=== PATIENT | male | born 1955 | race Caucasian/White ===

== ENCOUNTER 2016-08-26 01:38 | Inpatient (IN) | payer OTHER, MEDICARE ==
--- NOTE | 2016-08-23 12:56 | History & Physical Pre-Op ---
General Information and HPI History of Present Illness: Stanley is a 61-year-old diabetic with poorly controlled sugars who has a history of a long-standing nonhealing ulceration to the distal tip of his left second digit. Unfortunately, this lesion worsened with the interval development of cellulitis and now an underlying osteomyelitis. The patient failed strict offloading and local intensive wound care. Patient will now require IV antibiotics and a surgical debridement. Allergies/Medications Allergies: Coded Allergies: NO KNOWN ALLERGIES (07/18/14) Home Med list Amlodipine Besylate 2.5 MG TABLET 1 TAB PO DAILY HTN (Reported) Atorvastatin Calcium (Lipitor) 10 MG TABLET 1 TAB PO DAILY CHOLESTEROL ( Reported) Gabapentin 300 MG CAPSULE 600 MG PO BID NEUROPATHY (Reported) Glimepiride 4 MG TABLET 1 TAB PO DAILY DM (Reported) Hydrochlorothiazide (Hydrodiuril 25 MG Tab) 25 MG TABLET 1 TAB PO DAILY HTN ( Reported) Losartan Potassium 50 MG TABLET 1 TAB PO DAILY HTN (Reported) Meloxicam (Mobic) 15 MG TABLET 1 TAB PO DAILY PRN PAIN/INFLAMMATION Metformin Hydrochloride/Jacki (Janumet 1000 MG-50 MG) 1 TAB TAB 1 TAB PO BID DM (Reported) Oxycodone HCl 10 MG TABLET 1 TAB PO TID PRN BREAKTHROUGH PAIN Oxycodone HCl 10 MG TABLET 1 TAB PO BID PRN PAIN Oxycodone HCl/Acetaminophen (Percocet 10-325 MG Tablet) 1 EACH TABLET 1 TAB PO TIDP PAIN Oxycodone Hydrochloride (Oxycodone) 5 MG TAB 1 TAB PO EVERY 6HRS- NEEDED PAIN CONTROL Pantoprazole Sodium 20 MG ECT 1 TAB PO DAILY GI (Reported) Varenicline (Chantix 1 MG) 1 MG TABLET 1 TAB PO BID SMOKING (Reported) Past History Medical History Neurological: NONE EENT: NONE Cardiovascular: hypertension, hyperlipidemia Respiratory: NONE Gastrointestinal: irritable bowel syndrome Hepatic: NONE Renal: NONE Musculoskeletal: fracture Psychiatric: NONE Endocrine: diabetes Blood Disorders: NONE Cancer(s): NONE 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 Heart sounds rate and rhythm regular. Lower extremity physical exam demonstrates intact pedal pulses bilaterally. Pulses dorsalis pedis and posterior tibial arteries are palpable bilaterally. Patient noted to have a sensory deficit plantarly in a moccasin type distribution involving both the left and right feet. Patient noted to have a Paredes grade 3 ulceration to the distal tip of his left second digit. There is cellulitis extending proximal to the metatarsophalangeal joint. X-ray findings demonstrated and osteomyelitis involving the second digit. Assessment/Plan Assessment/Plan: Left foot osteomyelitis. A lengthy discussion reviewing both surgical and conservative options was held the patient at bedside and the patient elects to go forward with surgery despite the risks. As Ranked By This Provider Problem List: 1. Other acute osteomyelitis, left ankle and foot Attending MD Review Statement Attending Statement Attending MD Statement: examined this patient
[~2016-08-26] VITALS: Ht 185.4 cm; Wt 99.8 kg
[~2016-08-26 01:38] MED LIST: AMLODIPINE BESYL5 M1 PO; ATORVASTATIN CA10 MG PO; AUGMENTIN 875875 MG PO; CHANTIX 1 MG1 MG PO; GABAPENTIN300 MG PO; GLIMEPIRIDE4 MG PO; HYDROCHLOROTH12.5 M3 PO; HYDRODIURIL 2525 MG PO; JANUMET 1000 MG1 TAB PO; LOSARTAN POTASS50 MG PO; MOBIC15 M1 PO; NORVASC5 M1 PO; OXYCODONE HCL10 M2 PO; OXYCODONE5 MG PO; PANTOPRAZOLE SO20 MG PO; PERCOCET 10-321 EACH PO; PERCOCET 325 MG1 TA2 PO; PERCOCET 5-3251 EACH PO; VALIUM5 MG PO
--- NOTE | 2016-08-26 13:50 | Operative Report ---
Operative/Inv Procedure Report Surgery Date: 08/26/16 Name of Procedure: 1 open incision and drainage deep to the deep fascia with exposure of the extensor and flexor tendon and tendon sheath multiple sites left foot 2 partial second ray resection left foot 3 intraoperative administration of ankle block anesthesia Pre-Operative Diagnosis: 1 open infected wound left foot 2 osteomyelitis left foot 3 diabetic peripheral neuropathy Post-Operative Diagnosis: The same Estimated Blood Loss: less than 50ml Surgeon/Belt Sewer: ROLA LEE DPM Anesthesia: moderate sedation, block Operative/Procedure Note Note: After obtaining informed consent the patient was brought to the operating room and placed on the operating table in the supine position. The patient was then securely fastened to the operating table utilizing a safety belt. After administration of IV sedation, 10 mL of 0.5% Marcaine plain was infiltrated about the patient's left ankle. And ankle within scrubbed prepped and draped in usual aseptic manner. Attention was directed to the left foot were large full- thickness necrotic was identified at the level of the second digit encompassing the tissue down to the metatarsophalangeal joint. A racquet-type incision encompassing the second digit was marked out with a skin marker and the skin was sized along these lines. Full-thickness flaps were developed dorsally and plantarly. The dissection was then carried down deep to the D fashion with exposure of the extensor and flexor tendon and tendon sheath multiple sites, both proximally and distally. All necrotic nonviable and infected tissue sharply evacuated from the wound bed. The dissection was then carried down to the periosteum overlying the distal osseous segment which was incised and reflected. A sagittal bone saw was utilized performed through and through osteotomy. Bone specimen was harvested for both microbiologic and pathologic inspection. The open wound was then irrigated with 3 L of normal sterile saline infusion 50,000 units of bacitracin. Following this, the foot was redraped and the surgeon's top gloves were exchanged for clean gloves. Any bleeding vessels identified were cauterized or ligated as encountered. Nipple was then packed with iodoform and 3-0 nylon retention sutures were placed. The foot was then dressed with 4 x 4's Kerlix and an Eduardo wrap. The patient was noted to tolerate both procedure and anesthesia well and the patient was transported from the operating room to recovery with vital signs stable.
--- NOTE | 2016-08-26 15:21 | Cons- Medical ---
JERRY HERNANDEZ MD 08/26/16 1515: General Information and HPI Consulting Request Date of Consult: 08/26/16 Requested By: ROLA LEE DPM Reason for Consult: Diabetes, Hypertension Source of Information: patient, old records Exam Limitations: no limitations History of Present Illness: 61 year old man with a past medical history of diabetes, HTN, HLD, chronic back pain, neuropathy, who presents after open infected wound of left foot. Today he had open incision and drainage. He has no complaints at this time and would like to eat. Reports taking medications as prescribed. He does not check his blood sugars regularly, does report that they are usually well controlled. He saw his PCP last week and was given amlodipine to better control his blood pressure. He doesnt seem to have a grasp of the need for close monitoring of his blood sugars as he states he doesnt want to use insulin even if blood sugars are not controlled. Medicine has been asked to help manage his Diabetes and Hypertension. Allergies/Medications Allergies: Coded Allergies: NO KNOWN ALLERGIES (07/18/14) Home Med List: Amlodipine Besylate (Norvasc) 5 MG TABLET 1 TAB PO DAILY HTN (Reported) TAKES AT NIGHT Amlodipine Besylate 5 MG TABLET 1 TAB PO DAILY HTN (Reported) Atorvastatin Calcium (Lipitor) 10 MG TABLET 1 TAB PO DAILY CHOLESTEROL ( Reported) Gabapentin 300 MG CAPSULE 600 MG PO BID NEUROPATHY (Reported) Glimepiride 4 MG TABLET 1 TAB PO DAILY DM (Reported) Hydrochlorothiazide 12.5 MG CAPSULE 1 CAP PO DAILY HTN (Reported) Losartan Potassium 50 MG TABLET 1 TAB PO DAILY HTN (Reported) Metformin Hydrochloride/Jacki (Janumet 1000 MG-50 MG) 1 TAB TAB 1 TAB PO BID DM (Reported) Oxycodone HCl/Acetaminophen (Percocet 10-325 MG Tablet) 1 EACH TABLET 1 TAB PO TIDP PAIN Pantoprazole Sodium 20 MG ECT 1 TAB PO DAILY GI (Reported) Varenicline (Chantix 1 MG) 1 MG TABLET 1 TAB PO BID SMOKING (Reported) Current Medications: Current Medications Sig/Isaac Start time Last Medication Dose Route Stop Time Status Admin Amlodipine Besylate 2.5 MG DAILY 08/27 1000 AC PO Ampicillin Sodium/ 1,500 MG Q6 08/26 1800 AC Sulbactam Sodium IV Sodium Chloride 100 ML Atorvastatin Calcium 10 MG 1700 08/26 1700 AC PO Gabapentin 600 MG BID 08/26 2199 AC PO Glimepiride 4 MG DAILY 08/27 1000 AC PO Heparin Sodium 5,000 UNIT Q8 08/26 2199 AC (Porcine) SC Hydrochlorothiazide 25 MG DAILY 08/27 1000 AC PO Insulin Aspart 0 TIDAC 08/26 1700 AC SC Losartan Potassium 50 MG DAILY 08/27 1000 AC PO Omeprazole 20 MG DAILY AC 08/27 0700 AC PO Oxycodone HCl 10 MG BID 08/26 220 AC PO Oxycodone HCl 10 MG Q6P PRN 08/26 1515 AC PO Varenicline 1 MG BID 08/26 220 AC PO Review of Systems Review of Systems Constitutional: Reports: no symptoms, see HPI. 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 Home Who Do You Live With? spouse Services at Home: None Smoking Status: Unknown If Ever Smoked Functional Ability ADLs Independent: dressing, eating, toileting, bathing. Ambulation: independent IADLs Independent: shopping, housework, finances, food prep, telephone, transportation , medication admin. Exam & Diagnostic Data Last 24 Hrs of Vital Signs/I&O Vital Signs Date Time Temp Pulse Resp B/P Pulse O2 O2 Flow FiO2 Ox Delivery Rate 08/26 1637 Room Air Physical Exam General Appearance: alert, awake, comfortable Head: atraumatic, normal appearance Eyes: Bilateral: normal appearance, PERRL, EOMI. Neck: normal inspection, supple Respiratory: normal breath sounds, quiet respiration, lungs clear Cardiovascular: regular rate/rhythm Peripheral Pulses: 2+ radial (R) Gastrointestinal: normal bowel sounds, soft, non-tender Extremities: no edema Last 24 Hrs of Labs/Jean: WBC 7.2 HH 12.9/37.6 Platelets 307 Na 143 K 5.0 Cl 100 Bicarb 28 BUN 23 Cr 1.0 BS 179 Assessment/Plan Assessment/Plan 61 YO M with history of hypertension, dm, chronic back pain, neuropathy who had debridement of left foot for nonhealing wound and is suspected of having osteomyelitis. We are asked to see him for his diabetes and hypertension. HTN we will continue home medications, HCTZ, Amlodipine Diabetes accuchecks, continue home medications, janumet, glipizide will not use insulin if needed, wants to eat regular diet Neuropathy continue gabapentin DVT Heparin SQ Problem List: 1. Cellulitis 2. Diabetes 3. HTN (hypertension) 4. HLD (hyperlipidemia) Consult Acknowledgment - Thank you for your consult request. GRABIEL HENRY,EMILE 08/26/16 9595: Assessment/Plan Consult Acknowledgment - Thank you for your consult request. Attending MD Review Statement Attending Statement Attending MD Statement: examined this patient, discuss w/resident/PA/CHILD CARE EDUCATION COORDINATOR, agreed w/resident/PA/CHILD CARE EDUCATION COORDINATOR, reviewed EMR data (avail), discussed with nursing, amended to note Attending Assessment/Plan: 61-year-old male with history significant for hypertension, diabetes, chronic back pain, neuropathy who admitted under Dr. Howell service after he had a debridement off the left foot chronic nonhealing wound as well as osteomyelitis. Medical consult is obtained for comanagement of his chronic medical issues. Patient was started on antibiotics per Dr. Lee. He currently denies any pain. He absolutely refuses to go on any kind of insulin. He also refuses to go on carbohydrate controlled diet. He has been started on his home medications for his hypertension and diabetes per Dr. Lee. He claims that he had seen his doctor about a week ago and everything was normal. VSS On exam; aox3, nad. cv; s1,s2, rrr resp; clear abd; soft, nt, b+ ext; no edema. left foot wrapped in maddy wrap. Labs from 08/25/16 reviewed. Assessment and recommendations: 61-year-old male with history significant for hypertension, diabetes, chronic back pain, neuropathy who admitted under Dr. Howell service after he had a debridement off the left foot chronic nonhealing wound as well as osteomyelitis. Medical consult is obtained for comanagement of his chronic medical issues. Would recommend confirming his home medications for hypertension, pain as well as diabetes. Would recommend continuing the patient on his home regimen. Patient absolutely refuses to go on any kind of insulin. He does not want to be started on carbohydrate controlled diet. Please confirm with Dr. Lee if there is any plan to take patient to operating room again. Antibiotics per Dr. Lee. DVT prophylaxis: Heparin subcutaneous. Please check CBC and BEP in the morning. Thank you, will follow.
[2016-08-26 17:00] VITALS: BP 140/70
[2016-08-26 22:06] VITALS: BP 140/70
[2016-08-27 06:25] VITALS: BP 150/76
[2016-08-27 08:11] LABS: ABSOLUTE BASOPHIL COUNT 0 /CUMM (0.0-0.2); ABSOLUTE EOSINOPHIL COUNT 0.3 /CUMM (0.0-0.7); ABSOLUTE GRANULOCYTE CT 6.4 /CUMM (1.4-6.5); ABSOLUTE LYMPH COUNT 1.7 /CUMM (1.2-3.4); ABSOLUTE MONOCYTE COUNT 0.7 /CUMM (0.10-0.60); BASOPHIL % 0.3 % (0.0-2.0); EOSINOPHIL % 3.8 % (0-5); GRANULOCYTE % 69.9 % (42.2-75.2); HEMATOCRIT 36.5 % (42-52); MEAN CORPUSCULAR HGB 29.8 PG (27.0-31.0); MEAN CORPUSCULAR HGB CONC 33.4 G/DL (33.0-37.0); MEAN CORPUSCULAR VOLUME 89.3 FL (80.0-94.0); PLATELET COUNT 275 /CUMM (130-400); RBC DISTRIBUTION WIDTH 13.4 % (11.5-14.5); RED BLOOD CELL CT 4.09 /CUMM (4.70-6.10); WHITE BLOOD CELL COUNT 9.1 /CUMM (4.8-10.8)
--- NOTE | 2016-08-27 10:04 | PN- Medicine Consult ---
DAVID HENRY,[place] 08/27/16 0955: Assessment/Plan Assessment/Plan Assessment: 61 YO M with history of hypertension, dm, chronic back pain, neuropathy who had debridement of left foot for nonhealing wound and is suspected of having osteomyelitis. We are asked to see him for his diabetes and hypertension. HTN BP adequately controlled. Recommedation to eat low salt diet, he is noncomplaint with recommendations. we will continue home medications, HCTZ, Amlodipine Diabetes accuchecks, 161 continue home medications, janumet, glipizide States he will not use insulin if needed, wants to eat regular diet. He is noncompliant with recommendations Neuropathy continue gabapentin DVT Heparin SQ Plan: See above Problem List: 1. HTN (hypertension) 2. HLD (hyperlipidemia) 3. DVT prophylaxis 4. Full code status 5. Foot osteomyelitis, right 6. Neuropathy Subjective Subjective: Reports becoming angry with night nurse. Refused last night's accucheck. Slept well. No complaints at this time. Review of Systems Constitutional: Reports: see HPI. Objective Last 24 Hrs of Vital Signs/I&O Vital Signs Date Time Temp Pulse Resp B/P B/P Pulse O2 O2 Flow FiO2 Mean Ox Delivery Rate 08/27 0625 97.9 82 20 150/76 99 Room Air 08/27 0558 76 140/70 08/26 2206 76 20 140/70 98 08/26 1700 83 18 140/70 95 Room Air 08/26 1637 Room Air Intake & Output 08/27 1600 08/27 0800 08/27 0000 Intake Total 300 Output Total Balance 300 Intake, Oral 300 Patient 220 lb Weight Physical Exam General Appearance: well developed/nourished, no apparent distress, alert, awake , comfortable Head: atraumatic, normal appearance Neck: normal inspection, supple Cardiovascular: regular rate/rhythm Respiratory: normal breath sounds, quiet respiration, lungs clear Peripheral Pulses: 2+ radial (R) Abdomen: normal bowel sounds, soft, non-tender Extremities: no edema, left foot bandaged, I&D done yesterday Neurologic/Psychiatric: awake, alert, oriented x 3 Current Medications: Current Medications Sig/Isaac Start time Last Medication Dose Route Stop Time Status Admin Amlodipine Besylate 2.5 MG DAILY 08/27 1000 DC PO Amlodipine Besylate 5 MG 0600 08/27 0600 AC 08/27 PO 0558 Amlodipine Besylate 5 MG DAILY 08/26 2100 DC PO Ampicillin Sodium/ 1,500 MG Q6 08/26 1800 AC 08/27 Sulbactam Sodium IV 0551 Sodium Chloride 100 ML Ascorbic Acid 500 MG 1800 08/27 1800 AC PO Ascorbic Acid 500 MG 0600 08/27 0600 DC PO Ascorbic Acid 500 MG DAILY 08/26 1806 DC PO Atorvastatin Calcium 10 MG 1800 08/27 1800 AC PO Atorvastatin Calcium 10 MG 1700 08/26 1700 DC PO Cyanocobalamin 250 MCG 0600 08/27 0600 AC 08/27 PO 0559 Cyanocobalamin 250 MCG DAILY 08/26 1806 DC PO Gabapentin 600 MG 0600,1800 08/27 0600 AC 08/27 PO 0559 Gabapentin 600 MG BID 08/26 2200 DC 08/26 PO 1807 Glimepiride 4 MG DAILY 08/27 1000 DC PO Glimepiride 4 MG 0600 08/27 0600 AC 08/27 PO 0558 Heparin Sodium 5,000 UNIT Q8 08/26 2200 AC (Porcine) SC Hydrochlorothiazide 25 MG DAILY 08/27 1000 DC PO Hydrochlorothiazide 25 MG 0600 08/27 0600 AC 08/27 PO 0600 Hydromorphone HCl 2 MG .STK-MED ONE 08/26 1357 DC IM 08/26 1358 Insulin Aspart 0 TIDAC 08/26 1700 DC SC Losartan Potassium 50 MG DAILY 08/27 1000 DC PO Losartan Potassium 50 MG 0600 08/27 0600 AC 08/27 PO 0600 Meperidine HCl 50 MG .STK-MED ONE 08/26 1357 DC IM 08/26 1358 Metformin HCl 1,000 MG 0800 08/27 0800 DC PO Metformin HCl 1,000 MG 0600 08/27 0600 AC 08/27 PO 0600 Omeprazole 20 MG DAILY AC 08/27 0700 DC PO Omeprazole 20 MG 0600 08/27 0600 AC 08/27 PO 0559 Oxycodone HCl 10 MG 0600,1800 08/27 0600 AC 08/27 PO 0612 Oxycodone HCl 10 MG BID 08/26 2200 DC PO Oxycodone HCl 10 MG Q6P PRN 08/26 1515 AC PO Sitagliptin Phosphate 50 MG DAILY 08/27 1000 DC PO Sitagliptin Phosphate 50 MG 0600 08/27 0600 AC 08/27 PO 0600 Varenicline 1 MG 0600,1800 08/27 0600 AC 08/27 PO 0611 Varenicline 1 MG BID 08/26 2200 DC PO Results Last 24 Hrs Lab/Jean Results: Laboratory Tests 08/27/16 0650: Anion Gap 9, Estimated GFR > 60, BUN/Creatinine Ratio 24.4, CBC w Diff NO MAN DIFF REQ, RBC 4.09 L, MCV 89.3, MCH 29.8, RDW 13.4, MPV 8.0, Gran % 69.9, Lymphocytes % 18.5 L, Monocytes % 7.5, Eosinophils % 3.8, Basophils % 0.3, Absolute Granulocytes 6.4, Absolute Lymphocytes 1.7, Absolute Monocytes 0.7 H, Absolute Eosinophils 0.3, Absolute Basophils 0, PUBS MCHC 33.4 Microbiology 08/26 131 EXTREMITIE: Gross Specimen Examination - RECD 08/26 1314 EXTREMITIE: Gram Stain - RECMeet SPAIN MD,EMILE 08/27/16 1148: Attending MD Review Statement Attending Sign Off Attending Cosign Statement: I have: examined this patient, reviewed al EMR data, discussd w/resident/PA/ RHEOLOGIST, discussed mgmt plan w/madison, discussed mgmt plan w/pt, agreed w/resident/PA/RHEOLOGIST , amended to note. Other Findings: Patient seen and examined, denies any complaints. He has a history of chronic pain but said that currently his pain is controlled on current regimen. Vital Signs Date Time Temp Pulse Resp B/P B/P Pulse O2 O2 Flow FiO2 Mean Ox Delivery Rate 08/27 0625 97.9 82 20 150/76 99 Room Air 08/27 0558 76 140/70 08/26 2206 76 20 140/70 98 08/26 1700 83 18 140/70 95 Room Air 08/26 1637 Room Air on exam; aox3, nad. cv; s1,s2, rrr resp; clear abd; soft, nt, bs+ ext; no edema ms: left foot warpped in maddy wrap. Laboratory Tests 08/27 0650 Chemistry Sodium (137 - 145 mmol/L) 140 Potassium (3.5 - 5.1 mmol/L) 5.1 Chloride (98 - 107 mmol/L) 101 Carbon Dioxide (22 - 30 mmol/L) 29 Anion Gap (5 - 16) 9 BUN (9 - 20 mg/dL) 22 H Creatinine (0.7 - 1.2 mg/dL) 0.9 Estimated GFR (>60 ml/min) > 60 BUN/Creatinine Ratio (7 - 25 %) 24.4 Hematology CBC w Diff NO MAN DIFF REQ WBC (4.8 - 10.8 /CUMM) 9.1 RBC (4.70 - 6.10 /CUMM) 4.09 L Hgb (14.0 - 18.0 G/DL) 12.2 L Hct (42 - 52 %) 36.5 L MCV (80.0 - 94.0 FL) 89.3 MCH (27.0 - 31.0 PG) 29.8 RDW (11.5 - 14.5 %) 13.4 Plt Count (130 - 400 /CUMM) 275 MPV (7.4 - 10.4 FL) 8.0 Gran % (42.2 - 75.2 %) 69.9 Lymphocytes % (20.5 - 51.1 %) 18.5 L Monocytes % (1.7 - 9.3 %) 7.5 Eosinophils % (0 - 5 %) 3.8 Basophils % (0.0 - 2.0 %) 0.3 Absolute Granulocytes (1.4 - 6.5 /CUMM) 6.4 Absolute Lymphocytes (1.2 - 3.4 /CUMM) 1.7 Absolute Monocytes (0.10 - 0.60 /CUMM) 0.7 H Absolute Eosinophils (0.0 - 0.7 /CUMM) 0.3 Absolute Basophils (0.0 - 0.2 /CUMM) 0 PUBS MCHC (33.0 - 37.0 G/DL) 33.4 Assessment and recommendations: 61-year-old male with history significant for hypertension, diabetes, chronic back pain, neuropathy who admitted under Dr. Howell service after he had a debridement off the left foot chronic nonhealing wound as well as osteomyelitis POD # 1 today. Medical consult is obtained for comanagement of his chronic medical issues. Patient has been started back on his oral hypoglycemics. He is noncompliant with recommendations and absolutely refuses to get insulin. He does not want to take carbohydrate controlled diet and basically eating regular diet. He has been started on IV Unasyn per podiatry. I discussed with Dr. Wu, patient will be taken back to operating room tomorrow for further debridement. He is also refsuing finger stick checks. DVT Px: hep sq. Thank you, will follow.
[2016-08-27 14:22] VITALS: BP 136/60
[2016-08-27 22:42] VITALS: BP 120/60
[2016-08-28 06:38] VITALS: BP 142/74
--- NOTE | 2016-08-28 09:19 | PN- Medicine Consult ---
DAVID HENRY,JERRY 08/28/16 0912: Assessment/Plan Assessment/Plan Assessment: 61 YO M with history of hypertension, dm, chronic back pain, neuropathy who had debridement of left foot for nonhealing wound and is suspected of having osteomyelitis. We are asked to see him for his diabetes and hypertension. He is NPO this morning for revision of his left foot. HTN BP adequately controlled. Recommedation to eat low salt diet, he is noncomplaint with recommendations. Refusing to take medications this morning, NPO for revision of left foot. Diabetes accuchecks, 161, 144, 204, 157, 102 States he will not use insulin if needed, wants to eat regular diet. He is noncompliant with recommendations Neuropathy continue gabapentin DVT Heparin SQ Plan: See above Problem List: 1. HTN (hypertension) 2. DVT prophylaxis 3. Full code status 4. Other acute osteomyelitis, left ankle and foot 5. Diabetes Subjective Subjective: Reports feeling well. No complaints. Wants to go home today after foot revision Review of Systems Constitutional: Reports: see HPI. Objective Last 24 Hrs of Vital Signs/I&O Vital Signs Date Time Temp Pulse Resp B/P B/P Pulse O2 O2 Flow FiO2 Mean Ox Delivery Rate 08/28 0638 98.4 75 20 142/74 97 Room Air 08/27 2242 98.3 76 20 120/60 97 Room Air 08/27 1422 98.8 79 18 136/60 95 Room Air Intake & Output 08/28 1600 08/28 0800 08/28 0000 Intake Total 240 150 Output Total Balance 240 150 Intake, IV 240 150 Number 0 Bowel Movements Physical Exam General Appearance: well developed/nourished, alert, awake, comfortable Head: atraumatic, normal appearance Cardiovascular: regular rate/rhythm Respiratory: normal breath sounds, lungs clear Peripheral Pulses: 2+ radial (R) Abdomen: normal bowel sounds, soft, non-tender Extremities: no edema, left foot bandaged- Dr. Wu following Neurologic/Psychiatric: awake, alert, oriented x 3 Current Medications: Current Medications Sig/Isaac Start time Last Medication Dose Route Stop Time Status Admin Amlodipine Besylate 5 MG 0600 08/27 0600 AC 08/27 PO 0558 Ampicillin Sodium/ 1,500 MG Q6 08/26 1800 AC 08/28 Sulbactam Sodium IV 0605 Sodium Chloride 100 ML Ascorbic Acid 500 MG 1800 08/27 1800 AC 08/27 PO 1747 Atorvastatin Calcium 10 MG 1800 08/27 1800 AC 08/27 PO 1746 Cyanocobalamin 250 MCG 0600 08/27 0600 AC 08/27 PO 0559 Dextrose/Sodium 1,000 ML Q20H 08/28 0100 AC 08/28 Chloride IV 0736 Dextrose/Sodium 1,000 ML ONCE ONE 08/27 1515 CAN Chloride IV 08/28 1114 Gabapentin 600 MG 0600,1800 08/27 0600 AC 08/27 PO 1745 Glimepiride 4 MG 0600 08/27 0600 AC 08/27 PO 0558 Heparin Sodium 5,000 UNIT Q8 08/26 2200 AC (Porcine) SC Hydrochlorothiazide 25 MG 0600 08/27 0600 AC 08/27 PO 0600 Losartan Potassium 50 MG 0600 08/27 0600 AC 08/27 PO 0600 Metformin HCl 1,000 MG 0600 08/27 0600 AC 08/27 PO 0600 Omeprazole 20 MG 0600 08/27 0600 08/27 PO 0559 Oxycodone HCl 10 MG 0600,1800 08/27 0600 AC 08/28 PO 0614 Oxycodone HCl 10 MG Q6P PRN 08/26 1515 AC 08/27 PO 1149 Patient Medication 1 ED .STK-MED ONE 08/27 1404 DC Teaching ED 08/27 1405 Sitagliptin Phosphate 50 MG 0600 08/27 0600 08/27 PO 0600 Varenicline 1 MG 0600,1800 08/27 0600 AC 08/27 PO 1746 Results Last 24 Hrs Lab/Jean Results: no labs GRABIEL HENRY,[facility] 08/28/16 1110: Attending MD Review Statement Attending Sign Off Attending Cosign Statement: I have: examined this patient, reviewed aval EMR data, personally reviewd images, discussd w/resident/PA/REGIONAL MANAGER, discussed mgmt plan w/madison, discussed mgmt plan w/pt, agreed w/resident/PA/REGIONAL MANAGER, amended to note. Other Findings: Patient seen and examined, and claims that he's feeling tired. He did not get a good night sleep. Patient is scheduled to go the operating room again today. Vital Signs Date Time Temp Pulse Resp B/P B/P Pulse O2 O2 Flow FiO2 Mean Ox Delivery Rate 08/28 0638 98.4 75 20 142/74 97 Room Air 08/27 2242 98.3 76 20 120/60 97 Room Air 08/27 1422 98.8 79 18 136/60 95 Room Air on exam; aox3, nad. cv; s1,s2, rrr resp; clear abd; soft, nt, bs+ ext; no edema no labs today. Bone culture growing staph aureus. Blood sugars are stable. Assessment and recommendations: 61-year-old male with history significant for hypertension, diabetes, chronic back pain, neuropathy who admitted under Dr. Howell service after he had a debridement of the left foot chronic nonhealing wound as well as osteomyelitis POD # 2 today. Bone cultures growing staph on his. Patient scheduled to go the OR again today for further debridement. Medical consult is obtained for comanagement of his chronic medical issues. Blood pressure and blood sugars are stable. Discussed with Dr. Wu about the bone culture results. Currently patient on Unasyn per Dr. Wu. I'm not sure what his plan is in terms of antibiotics. Pain management is adequate. Continue all current regimen. DVT prophylaxis: Hep sq. Thank you, will follow.
[2016-08-28 15:15] VITALS: BP 134/84
--- NOTE | 2016-08-28 19:30 | Operative Report ---
Operative/Inv Procedure Report Surgery Date: 08/28/16 Name of Procedure: 1 open incision and drainage deep to the deep fascia with exposure of the extensor and flexor tendon and tendon sheath multiple sites left foot 2 delayed primary closure of open surgical wound with local random advancement flap 3 revisional partial second ray resection left foot 4 intraoperative administration of ankle block anesthesia 5 excisional debridement Pre-Operative Diagnosis: 1 open necrotic wound left foot 2 osteomyelitis left foot 3 diabetic peripheral neuropathy Post-Operative Diagnosis: The same Estimated Blood Loss: less than 50ml Surgeon/Fractionating Still Operator: ROLA LEE DPM Anesthesia: moderate sedation, block Operative/Procedure Note Note: After obtaining informed consent the patient was brought to the operating room and placed on the operating table in the supine position. The patient was then securely fastened to the operating table utilizing a safety belt. After administration of IV sedation, 10 mL of 0.5% Marcaine plain was infiltrated about the patient's left ankle. Left foot and ankle then scrubbed prepped and draped in usual aseptic manner. Left foot, where a large full-thickness necrotic was identified. A 15 blade was utilized sharply revised skin margins. The dissection was then carried down deep to the deep fascia with exposure of the extensor and flexor tendon and tendon sheath multiple sites, both proximally and distally. All necrotic nonviable and infected tissue sharply evacuated from the wound bed. The dissection was then continued proximally to the level of the capture structures at the metatarsophalangeal joint. These were released and the distal osseous segment was freed and passed from the operative field. The specimen was sent for pathologic inspection. The open wound was then irrigated with 3 L of normal sterile saline infusion 50,000 units of bacitracin. Following this, the foot was redraped and the surgeon's top gloves were exchanged for clean gloves. Any bleeding vessels identified were cauterized or ligated as encountered. A dorsal medial dorsal lateral flap was then developed with undermining, mobilization and advancement of the adjacent tissues. A dorsal lateral flap was rotated centrally and secured with 3-0 Vicryl. The dorsal medial flap was similarly rotated and again secured centrally with 3-0 Vicryl. The septae stitches were reapproximated 4-0 Vicryl and the skin edges were reapproximated with 3-0 nylon. The incision was dressed with Xeroform 4 x 4's Kerlix and an Eduardo wrap. The patient was noted to tolerate both procedure and anesthesia well and the patient was transported from the operating room to recovery with vital signs stable best assess intact to both the dorsal medial dorsal lateral flaps.
--- NOTE | 2016-08-28 19:32 | Surgical Discharge Summary ---
Visit Information Visit Dates Admission Date: 08/26/16 Discharge Date: 08/28/16 History of Present Illness Chief Complaint: Stanley is a 61-year-old poorly controlled diabetic with a history of a long- standing and nonhealing ulceration to his left second digit. The patient failed a course of local intensive wound care and strict offloading. Unfortunately, despite the course of by mouth antibiotics the patient developed an underlying osteomyelitis. Now requires an admission for IV antibiotics and surgical debridement. Medical History Blood Transfusion Hx: No Neurological: NONE, peripheral neuropathy, restless leg syndrome EENT: NONE Cardiovascular: hypertension, hyperlipidemia Respiratory: NONE Gastrointestinal: NONE Hepatic: NONE Renal: NONE Musculoskeletal: chronic back pain, falls Psychiatric: NONE Endocrine: diabetes Blood Disorders: NONE Cancer(s): NONE SPEED OPERATOR/Reproductive: NONE History of MRSA: No History of VRE: No History of CDIFF: No Isolation History: Standard Surgical History Pertinent Surgical History: cervical fusion RT FOOT (I AND D) Family History Relations & Conditions If Any: Relation not specified for: *No pertinent family history Psychosocial History Where Do You Live? Home Who Do You Live With? Spouse Services at Home: None What is Your Primary Language? Mongolian Review of Systems: Unremarkable except for that noted in history of present illness Hospital Course Course Attending Physician: ROLA LEE DPM Primary Care Physician: ARLEY SPAULDING APRN [facility] Course: Patient was admitted for IV antibiotics and an initial debridement which she tolerated well. Patient was transferred to the floor after an open incision and drainage. His bone cultures were harvested and the patient was started on broad -spectrum IV antibiotics. The patient remained stable and afebrile during the course of his stay. Patient returned to the OR for a revision and closure. Allergies: Coded Allergies: NO KNOWN ALLERGIES (07/18/14) Disposition Summary Disposition Principal Diagnosis: Osteomyelitis left foot Additional Diagnosis: Left lower extremity cellulitis Discharge Disposition: home or self care Discharge Instructions General Discharge Information Code Status: Full Code Patient's Diet: 2200 kcal ADA diet Patient's Activity: Heel touch left foot. Keep dressing clean dry and intact. Follow-Up Instructions/Appts: Patient was instructed follow-up with Dr. Lee within 1 week of discharge. Medications at Discharge Discharge Medications: Continue taking these medications: Gabapentin (Gabapentin) 300 MG CAPSULE 600 Milligram ORAL TWICE DAILY Qty = 120 Comments: Last Taken:06/25/14 Time:1000 Losartan Potassium (Losartan Potassium) 50 MG TABLET 1 Tablet ORAL DAILY Qty = 30 Comments: Last Taken:06/25/14 Time:1000 Glimepiride (Glimepiride) 4 MG TABLET 1 Tablet ORAL DAILY Qty = 30 Comments: NOT GIVEN Amlodipine Besylate (Norvasc) 5 MG TABLET 1 Tablet ORAL DAILY Instructions: TAKES AT NIGHT Varenicline (Chantix 1 MG) 1 MG TABLET 1 Tablet ORAL TWICE DAILY Qty = 56 Comments: Last Taken:06/25/14 Time:1000 Metformin Hydrochloride/Jacki (Janumet 1000 MG-50 MG) 1 TAB TAB 1 Tablet ORAL TWICE DAILY Qty = 60 Comments: NOT GIVEN Pantoprazole Sodium (Pantoprazole Sodium) 20 MG ECT 1 Tablet ORAL DAILY Qty = 90 Comments: Last Taken:06/25/14 Time:1000 Atorvastatin Calcium (Lipitor) 10 MG TABLET 1 Tablet ORAL DAILY Comments: Last Taken:06/24/14 Time:5PM Oxycodone HCl/Acetaminophen (Percocet 10-325 MG Tablet) 1 EACH TABLET 1 Tablet ORAL TIDP Qty = 20 Hydrochlorothiazide (Hydrochlorothiazide) 12.5 MG CAPSULE 1 Capsule ORAL DAILY Amlodipine Besylate (Amlodipine Besylate) 5 MG TABLET 1 Tablet ORAL DAILY Comments: Last Taken:08/27/16 Time: 6AM Attending MD Review Statement Attending Statement Attending MD Statement: examined this patient
== END 2016-08-28 16:51 | DRG 617 ==
LOC: ENRESERVDT → ENRESERVTM → STS 01:38 → PACUH 13:37 → 2NA 13:37
PROVIDERS: Student in an Organized Health Care Education/Training Program; ADMIT Podiatrist Foot & Ankle Surgery
PROC: 0Y6S0Z3 Detachment at Left 2nd Toe, Low, Open Approach (ICD-10-PCS; principal; 2016-08-26)
PROC: 0HXNXZZ Transfer Left Foot Skin, External Approach (ICD-10-PCS; 2016-08-28)
PROC: 0Y6S0Z0 Detachment at Left 2nd Toe, Complete, Open Approach (ICD-10-PCS; 2016-08-28)
DX: E11.69 Type 2 diabetes mellitus with other specified complication (principal); M86.172 Other acute osteomyelitis, left ankle and foot; E11.65 Type 2 diabetes mellitus with hyperglycemia; L97.529 Non-pressure chronic ulcer of other part of left foot with unspecified severity; I10 Essential (primary) hypertension; E78.5 Hyperlipidemia, unspecified; K58.9 Irritable bowel syndrome, unspecified; Z79.84 Long term (current) use of oral hypoglycemic drugs; E11.42 Type 2 diabetes mellitus with diabetic polyneuropathy; E11.621 Type 2 diabetes mellitus with foot ulcer; L03.032 Cellulitis of left toe; G89.29 Other chronic pain; M54.9 Dorsalgia, unspecified; G25.81 Restless legs syndrome
CPT/HCPCS: 2NAP; 87070; 87075; 87184; 36415; 82436; 87147; 88305; 93005; 93010; J1644; J2001; J7042

== ENCOUNTER 2016-12-05 09:51 | Emergency (ER) | payer OTHER, MEDICARE ==
[~2016-12-05] VITALS: Ht 185.4 cm; Wt 99.8 kg
--- NOTE | 2016-12-05 09:58 | ED SYNCOPE COMPLAINT ---
History of Present Illness General Chief Complaint: Syncope and Near-Syncope Stated Complaint: SYNCOPE Source: patient, old records, EMS Exam Limitations: clinical condition Vital Signs & Intake/Output Vital Signs & Intake/Output Vital Signs Date Time Temp Pulse Resp B/P B/P Pulse O2 O2 Flow FiO2 Mean Ox Delivery Rate 12/05 1022 95 Nasal 2.0L Cannula 12/05 1013 32 18 80/50 100 Room Air Allergies Coded Allergies: NO KNOWN ALLERGIES (07/18/14) Reconcile Medications Amlodipine Besylate 5 MG TABLET 1 TAB PO DAILY HTN (Reported) Amlodipine Besylate (Norvasc) 5 MG TABLET 1 TAB PO DAILY HTN (Reported) TAKES AT NIGHT Atorvastatin Calcium (Lipitor) 10 MG TABLET 1 TAB PO DAILY CHOLESTEROL ( Reported) Gabapentin 300 MG CAPSULE 600 MG PO BID NEUROPATHY (Reported) Glimepiride 4 MG TABLET 1 TAB PO DAILY DM (Reported) Hydrochlorothiazide 12.5 MG CAPSULE 1 CAP PO DAILY HTN (Reported) Losartan Potassium 50 MG TABLET 1 TAB PO DAILY HTN (Reported) Metformin Hydrochloride/Jacki (Janumet 1000 MG-50 MG) 1 TAB TAB 1 TAB PO BID DM (Reported) Oxycodone HCl/Acetaminophen (Percocet 10-325 MG Tablet) 1 EACH TABLET 1 TAB PO TIDP PAIN Pantoprazole Sodium 20 MG ECT 1 TAB PO DAILY GI (Reported) Varenicline (Chantix 1 MG) 1 MG TABLET 1 TAB PO BID SMOKING (Reported) Triage Nurses Notes Reviewed? yes Timing: single episode today Context: PER HPI Associated Symptoms: shortness of breath, BACK PAIN HPI: 61 y/o male h/o htn, dyslipidemia, dm presents via EMS from home after sick call. According to the patient he is not feeling well for the past 2 days. Did not eat or drink anything for the last 2 days. Patient found to be bradycardic by EMS. ST elevation on the monitor. Past History Medical History Any Pertinent Medical History? see below for history Neurological: NONE, peripheral neuropathy, restless leg syndrome EENT: NONE Cardiovascular: hypertension, hyperlipidemia Respiratory: NONE Gastrointestinal: NONE Hepatic: NONE Renal: NONE Musculoskeletal: chronic back pain, falls Psychiatric: NONE Endocrine: diabetes Blood Disorders: NONE Cancer(s): NONE ROLFER/Reproductive: NONE History of MRSA: No History of VRE: No History of CDIFF: No Surgical History Surgical History: cervical fusion RT FOOT (I AND D) Psychosocial History Who do you live with Spouse Services at Home None What is your primary language Estonian Family History Family History, If Any: Relation not specified for: *No pertinent family history Hx Contributory? No Review of Systems Review of Systems Constitutional: Reports: malaise, weakness. EENTM: Reports: no symptoms. Respiratory: Reports: short of breath. Denies: cough. Cardiovascular: Denies: chest pain. GI: Denies: abdominal pain, nausea, vomiting. Genitourinary: Reports: no symptoms. Musculoskeletal: Reports: back pain (LOW BACK). Skin: Reports: no symptoms. Neurological/Psychological: Reports: no symptoms. All Other Systems: Reviewed and Negative Physical Exam Physical Exam General Appearance: well developed/nourished, lethargic, mild distress, moderate distress Head: atraumatic Eyes: Bilateral: PERRL, EOMI. Ears, Nose, Throat: DRY MUCUS MEMBRANES Neck: normal inspection, supple, full range of motion Respiratory: normal breath sounds, chest non-tender Cardiovascular: bradycardia Gastrointestinal: soft, non-tender Extremities: RIGHT TOE WOUND Psychiatric: lethargic Cranial Nerves: normal hearing, normal speech Motor/Sensory: MOVING ALL EXTREMITIES Skin: pallor Core Measures ACS in differential dx? Yes ASA ordered for poss ACS? Yes-ordered CVA/TIA Diagnosis: No Severe Sepsis Present: No Septic Shock Present: No Progress Differential Diagnosis: STEMI, RENAL FAILURE, DRUG USE, DEHYDRATION, YUSEF, HYPERKALEMIA, ENDOCARDITIS, VALVE RUPTURE Plan of Care: Orders Procedure Date/time Status Add-on Test (ER Only) 12/05 1101 Active Add-on Test (ER Only) 12/05 1019 Active LACTIC ACID 12/05 1004 Complete Telemetry/Supervisor Furnace Room 12/05 1002 Active URINE DRUGS OF ABUSE 12/05 1001 Complete URINALYSIS 12/05 1001 Active TROPONIN LEVEL 12/05 1001 Active PARTIAL THROMBOPLASTIN TIME 12/05 1001 Complete PROTHROMBIN TIME 12/05 1001 Complete COMPREHENSIVE METABOLIC PANEL 12/05 1001 Active CREATINE PHOSPHOKINASE 12/05 1001 Active CBC WITHOUT DIFFERENTIAL 12/05 1001 Complete EKG 12/05 0954 Active Laboratory Tests 12/05/16 1011: Urine Opiates Screen 1149.00, Methadone Screen 40, Barbiturate Screen < 60, Ur Phencyclidine Scrn < 6.00, Amphetamines Screen < 100, U Benzodiazepines Scrn < 85, Urine Cocaine Screen < 50, Urine Cannabis Screen 27.20 12/05/16 1004: Lactic Acid 12.4 H, PT 23.8 H, INR 2.29 H, APTT 30, CBC w Diff MAN DIFF ORDERED, RBC 3.36 L, MCV 90.3, MCH 29.8, RDW 14.6 H, MPV 8.0, Gran % 88.0 H, Lymphocytes % 6.9 L, Monocytes % 5.0, Eosinophils % 0, Basophils % 0.1, Absolute Granulocytes 18.9 H, Segmented Neutrophils 73, Band Neutrophils 10 H, Absolute Lymphocytes 1.5, Lymphocytes 11 L, Monocytes 6, Absolute Monocytes 1.1 H, Absolute Eosinophils 0, Absolute Basophils 0, Platelet Estimate VERIFIED BY SMEAR, Normocytic RBCs VERIFIED, Normochromic RBCs VERIFIED, PUBS MCHC 33.[address] DURAN ARNOLD d/[facility], HEART RATE 32 ON MONITOR, NOW COMPLAINING OF INCREASED PAIN 11:59 HEMOLYZED TROPONIN WAS 69 (UNVERIFIED) LACTIC 12.5 (ARIELLA HENRY,ANGEL) Diagnostic Imaging: Viewed by Me: Radiology Read. Discussed w/RAD: Radiology Read. CXR Impression: PATIENT: MALIKA IRBY PRESENT AGE: 61 PATIENT ACCOUNT NO: [id number] : 59 LOCATION: [facility] ORDERING PHYSICIAN: ANGEL KRISHNAN MD SERVICE DATE: 12/05/16 EXAM TYPE: RAD - XRY-PORTABLE CHEST XRAY EXAMINATION: CHEST 1 VIEW CLINICAL INFORMATION: Bradycardia. COMPARISON: None. TECHNIQUE: An AP view of the chest is provided. FINDINGS: Evaluation is quite limited as the lower right hemithorax is excluded from view. As well, the film is markedly rotated. The cardiac silhouette is mildly enlarged. There is the appearance of interstitial prominence present throughout both lungs. There are no discernible consolidations. The osseous structures are unremarkable. IMPRESSION: Mild cardiomegaly with likely mild vascular congestion. No consolidations. Quite limited study as stated above. DICTATED BY: JONATHAN SON MD DATE/TIME DICTATED:12/05/161053 SOA ENGINEER:JONEL DATE/TIME TRANSCRIBED:12/05/161053 CONFIDENTIAL, DO NOT COPY WITHOUT APPROPRIATE AUTHORIZATION. <Electronically signed in Other Vendor System> SIGNED BY: JONATHAN SON MD 12/05/16 1058 Initial ED EKG: ST ELEVATION 2, 3, AVF WITH RECEPROCAL ST DEPRESSION 1, AVL, V3- V4 SINUS BRAVO 47, 1ST DEGREE AV BLOCK Prior EKG: changed (SINUS RHYTHM) Departure Departure Time of Disposition: 1031 Disposition: OTHER [facility] (ACUTE) Condition: Stable Clinical Impression Primary Impression: AMI (acute myocardial infarction) Secondary Impressions: Bradycardia, Hypotension Referrals: ARLEY SPAULDING APRN Departure Forms: Customer Survey General Discharge Information Critical Care Note Critical Care Note Critical Care Time: 30-74 min
[2016-12-05 10:13] VITALS: BP 80/50
[2016-12-05 10:28] LABS: ABSOLUTE BASOPHIL COUNT 0 /CUMM (0.0-0.2); ABSOLUTE EOSINOPHIL COUNT 0 /CUMM (0.0-0.7); ABSOLUTE GRANULOCYTE CT 18.9 /CUMM (1.4-6.5); ABSOLUTE LYMPH COUNT 1.5 /CUMM (1.2-3.4); ABSOLUTE MONOCYTE COUNT 1.1 /CUMM (0.10-0.60); BASOPHIL % 0.1 % (0.0-2.0); EOSINOPHIL % 0 % (0-5); HEMATOCRIT 30.3 % (42-52); MEAN CORPUSCULAR HGB 29.8 PG (27.0-31.0); MEAN CORPUSCULAR VOLUME 90.3 FL (80.0-94.0); PLATELET COUNT 405 /CUMM (130-400); RBC DISTRIBUTION WIDTH 14.6 % (11.5-14.5); RED BLOOD CELL CT 3.36 /CUMM (4.70-6.10); WHITE BLOOD CELL COUNT 21.5 /CUMM (4.8-10.8)
[2016-12-05 10:35] LABS: PT 23.8 SEC (9.4-12.5); PTT 30 SEC (25-37)
--- NOTE | 2016-12-05 10:58 | RADIOLOGY REPORT ---
EXAMINATION: CHEST 1 VIEW CLINICAL INFORMATION: Bradycardia. COMPARISON: None. TECHNIQUE: An AP view of the chest is provided. FINDINGS: Evaluation is quite limited as the lower right hemithorax is excluded from view. As well, the film is markedly rotated. The cardiac silhouette is mildly enlarged. There is the appearance of interstitial prominence present throughout both lungs. There are no discernible consolidations. The osseous structures are unremarkable. IMPRESSION: Mild cardiomegaly with likely mild vascular congestion. No consolidations. Quite limited study as stated above.
== END 2016-12-05 10:28 | disposition short-term general hospital (02) ==
LOC: ERH 09:51
PROVIDERS: Emergency Medicine
DX: I21.3 ST elevation (STEMI) myocardial infarction of unspecified site (principal); R00.1 Bradycardia, unspecified; I95.9 Hypotension, unspecified; E11.9 Type 2 diabetes mellitus without complications; Z79.84 Long term (current) use of oral hypoglycemic drugs
CPT/HCPCS: 80307; 93005; 93010; 96374; 96375; 99291; J0461; J1644; J2310; J3490